=== PATIENT | female | born 1945 | race Caucasian/White ===

== ENCOUNTER 2021-07-16 20:16 | Emergency (ER) | payer MEDICARE ==
[~2021-07-16] VITALS: Ht 157.5 cm; Wt 74.8 kg
[2021-07-16] MEDS ORDERED: ONDANSETRON HCL/PF 4 MG/2 ML VIAL ONE (21:59)
[2021-07-16] MEDS ORDERED: MORPHINE SULFATE INJ 4 MG/ML DISP.SYRIN ONE (22:00)
[2021-07-16] MEDS: ONDANSETRON HCL/PF 4 MG/2 ML VIAL IV ONE (22:04)
[2021-07-16] MEDS: MORPHINE SULFATE INJ 2 MG/ML DISP.SYRIN IV ONE (22:04)
[2021-07-16] MEDS ORDERED: IBUP-1955 PO (22:12)
--- NOTE | 2021-07-16 22:30 | NUR ---
Patient discharged to home in stable condition. Written and verbal after care instructions given. Patient verbalizes understanding of instruction. RX given
[2021-07-16 22:31] VITALS: BP 132/70
== END 2021-07-16 23:15 | disposition home or self-care (01) ==
LOC: ER 20:16
DX: M25.562 Pain in left knee (principal); I10 Essential (primary) hypertension; Z90.49 Acquired absence of other specified parts of digestive tract; Z90.710 Acquired absence of both cervix and uterus; Z60.2 Problems related to living alone; Z79.899 Other long term (current) drug therapy; W01.0XXA Fall on same level from slipping, tripping and stumbling without subsequent striking against object, initial encounter; Y93.89 Activity, other specified; Y92.89 Other specified places as the place of occurrence of the external cause; Y99.8 Other external cause status
CPT/HCPCS: 73564; 96374; 96375; 99284; J2270; J2405